=== PATIENT | male | born 1985 | race African-American/Black ===

== ENCOUNTER 2021-08-09 19:42 | Emergency (ER) | payer MEDICAID, OTHER ==
[~2021-08-09] VITALS: Ht 213.4 cm; Wt 120.2 kg
--- NOTE | 2021-08-09 20:02 | NUR ---
[employer] at bedside.
--- NOTE | 2021-08-09 20:20 | NUR ---
Dr. Porter at bedside for [facility]SE.
[2021-08-09] MEDS ORDERED: OXYCODONE/APAP 5-325 MG TABLET PO ONE (20:30)
[2021-08-09] MEDS ORDERED: OXYCODONE/APAP 5-325 MG TABLET ONE (21:20)
[2021-08-09] MEDS ORDERED: NEOMY/BACITRA/POLYMYXIN B OINT UD PACKET TP ONE (21:28)
[2021-08-09] MEDS ORDERED: OXYC-128 PO (21:44)
--- NOTE | 2021-08-09 22:41 | NUR ---
Patient discharged to home in stable condition. Written and verbal after care instructions given. Patient verbalizes understanding of instructions. Stressed follow up or return to ER for worsening s/s. Patient out of ER with wheelchair, VSS, no acute signs of distress, all belongings taken, assisted patient on transfer from chair to car, no falls noted, to be driven home by friend via private vehicle, pt provided with copies of xray results and cd.
[2021-08-09 22:42] VITALS: BP 120/63
== END 2021-08-09 22:43 | disposition home or self-care (01) ==
LOC: ER 19:46
DX: S82.141A Displaced bicondylar fracture of right tibia, initial encounter for closed fracture (principal); S62.111A Displaced fracture of triquetrum [cuneiform] bone, right wrist, initial encounter for closed fracture; V23.4XXA Motorcycle driver injured in collision with car, pick-up truck or van in traffic accident, initial encounter; Y92.414 Local residential or business street as the place of occurrence of the external cause; M25.061 Hemarthrosis, right knee; S80.811A Abrasion, right lower leg, initial encounter; R00.0 Tachycardia, unspecified; F17.290 Nicotine dependence, other tobacco product, uncomplicated
CPT/HCPCS: 73110; A4663